=== PATIENT | female | born 1950 | race Caucasian/White ===

== ENCOUNTER 2021-10-19 16:39 | Emergency (ER) | payer MEDICARE, SELFPAY ==
--- NOTE | 2021-10-19 16:40 | ED_ITS ---
Documented by User: Champ Rivero MD 11/01/21 00:02 HPI - Fall General: Chief Complaint: Fall Stated Complaint: ams fall Time Seen by Provider: 10/19/21 16:40 Limitations: altered mental status History of Present Illness: Ms Ellington is a 71-year-old lady with unclear past medical or surgical history who presents to the emergency department with altered mental status and apparently a fall. There is no collateral information available other than EMS report that the patient had a few drinks and fell. History is otherwise limited by patient's current mental status. She provides no meaningful history. Review of Systems General: Reports: ROS unobtainable due to mental status PFS ED PFSH: Medical History Medical history unknown Surgical History Surgical history unknown Social History Alcohol intake: current Physical Exam Const: COMMON NORMALS: alert GENERAL APPEARANCE: well developed HENMT: COMMON NORMALS: normocephalic HEAD & SCALP: normocephalic OTHER: No russo signs or raccoon eyes. No hemotympanum. No otorrhea or rhinorrhea. Jaw alignment normal. Dentition baseline. No obvious bony step-offs. No evidence of ocular entrapment. Eye: COMMON NORMALS: conjunctivae normal CONJUNCTIVA: Yes conjunctivae normal SCLERA: sclerae normal Neck/C-Spine: COMMON NORMALS: supple GENERAL: Yes trachea midline Resp: COMMON NORMALS: normal respiratory effort EFFORT & INSPECTION: Yes able to speak in complete sentences Cardio: COMMON NORMALS: regular rate and regular rhythm RATE: regular rate RHYTHM: regular rhythm GI: COMMON NORMALS: Soft to palpation PALPATION: Yes Soft to palpation, Yes Tenderness to palpation present (GI), No Guarding due to palpation present (GI), No Rigid due to palpation and Yes Palpable mass present (suprapubic distention) PERCUSSION: normal to percussion Extremity: GENERAL: Yes normal exam except as noted and No edema Neuro: COMMON NORMALS: moves all extremities SENSORIUM/ORIENTATION: Yes alert and Yes Orientation impaired Psych: MEMORY/COGNITION: Yes memory grossly impaired and Yes cognition grossly impaired Course ED course: - Patient was seen and evaluated by me at bedside - Patient placed on cardiac monitors, IV access obtained - Initial evaluation notable for altered status of uncertain etiology. Head to toe exam performed. - Patient care handed off to overnight ED physician Dr. Shankar pending completion of ED evaluation and reassessment. Vital Signs: Vital signs: Vital Signs Pulse Rate 90 10/19/21 20:59 Respiratory Rate 16 10/19/21 20:59 Blood Pressure 103/55 10/19/21 20:59 Pulse Oximetry 98 10/19/21 20:59 MDM - Fall Medical Records I reviewed the patient's medical records. Lab Data I reviewed the patient's lab results. : 10/19/21 19:00 10/19/21 19:00 Radiology Impressions Cervical Spine CT 10/19/21 16:52 IMPRESSION: No acute abnormality. Chest/Abdomen/Pelvis CT 10/19/21 16:52 IMPRESSION: No acute traumatic intrathoracic findings. IMPRESSION: 1. No acute traumatic intra-abdominal findings. 2. Distended debris-filled stomach with an over distended bladder which is likely contributing to findings on exam. Head CT 10/19/21 16:52 IMPRESSION: No acute intracranial abnormality. Laboratory Results WBC 5.1 10^3/uL (4.0-10.0) 10/19/21 19:00 RBC 4.16 10^6/uL (4.1-5.3) 10/19/21 19:00 Hgb 13.4 g/dL (11.5-15.3) 10/19/21 19:00 Hct 39.4 % (37.0-47.0) 10/19/21 19:00 MCV 94.7 fl (81-99) 10/19/21 19:00 MCH 32.2 pg (28.0-34.0) 10/19/21 19:00 MCHC 34.0 g/dL (30.0-36.0) 10/19/21 19:00 RDW 12.4 % (12.1-15.1) 10/19/21 19:00 Plt Count 247 10^3/cmm (130-400) 10/19/21 19:00 MPV 10.9 fL (7.4-10.4) H 10/19/21 19:00 Neut % (Auto) 60.8 % 10/19/21 19:00 Lymph % (Auto) 26.7 % 10/19/21 19:00 [place] % (Auto) 8.4 % 10/19/21 19:00 Eos % (Auto) 3.3 % 10/19/21 19:00 Baso % (Auto) 0.4 % 10/19/21 19:00 Neut # (Auto) 3.10 10^3/uL (1.8-7.7) 10/19/21 19:00 Lymph # (Auto) 1.4 10^3/uL (0.8-4.8) 10/19/21 19:00 [place] # (Auto) 0.4 10^3/uL (0.2-0.9) 10/19/21 19:00 Eos # (Auto) 0.2 10^3/uL (0.0-0.8) 10/19/21 19:00 Baso # (Auto) 0.0 10^3/uL (0.0-0.1) 10/19/21 19:00 Nucleated RBC % (auto) 0 % 10/19/21 19:00 Nucleated RBCs # 0.0 /100WBC 10/19/21 19:00 Sodium 138 mmol/L (136-145) 10/19/21 19:00 Potassium 3.8 mmol/L (3.5-5.1) 10/19/21 19:00 Chloride 100 mmol/L (98-107) 10/19/21 19:00 Carbon Dioxide 23 mmol/L (22-29) 10/19/21 19:00 Anion Gap 18.8 (5-19) 10/19/21 19:00 BUN 9 mg/dL (8-23) 10/19/21 19:00 Creatinine 0.7 mg/dL (0.5-0.9) 10/19/21 19:00 GFR Calculation Not Reportable 10/19/21 19:00 Glucose 123 mg/dL (65-115) H 10/19/21 19:00 POC Glucose 126 mg/dL (70-110) H 10/19/21 16:55 Calculated Osmolality 286 mOsm/kg (285-295) 10/19/21 19:00 Calcium 9.4 mg/dL (8.5-10.5) 10/19/21 19:00 Total Bilirubin 0.2 mg/dL (0.15-1.2) 10/19/21 19:00 AST 21 U/L (0-32) 10/19/21 19:00 ALT 25 U/L (0-33) 10/19/21 19:00 Alkaline Phosphatase 76 IU/L (35-105) 10/19/21 19:00 Troponin T Baseline 6 ng/L (0-10) 10/19/21 19:00 Total Protein 6.5 g/dL (6.6-8.7) L 10/19/21 19:00 Albumin 4.3 g/dL (3.5-5.2) 10/19/21 19:00 Globulin 2.2 g/dL (1.3-4.6) 10/19/21 19:00 TSH 2.14 uIU/mL (0.27-4.20) 10/19/21 19:00 Urine Color Yellow (Yellow) 10/19/21 19:05 Urine Appearance Clear (CLEAR) 10/19/21 19:05 Urine pH 5 (5-7) 10/19/21 19:05 Ur Specific [place] 1.000 (1.005-1.030) L 10/19/21 19:05 Urine Protein Neg (Negative) 10/19/21 19:05 Urine Glucose (UA) Norm (Normal) 10/19/21 19:05 Urine Ketones Negative (Negative) 10/19/21 19:05 Urine Blood Neg (Negative) 10/19/21 19:05 Urine Nitrate Negative (Negative) 10/19/21 19:05 Urine Bilirubin Neg (Negative) 10/19/21 19:05 Urine Urobilinogen Norm mg/dL (Negative) 10/19/21 19:05 Ur Leukocyte Esterase Negative (Negative) 10/19/21 19:05 Salicylates < 0.3 mg/dL (3-10) L 10/19/21 19:00 Acetaminophen < 5.0 ug/mL (10-30) L 10/19/21 19:00 Ethyl Alcohol 240 mg/dL (0-10) H 10/19/21 19:00 Discharge Plan Discharge Patient Disposition: Home Clinical Impression: Alcohol intoxication, Concussion without loss of consciousness Condition: Stable Discharge Orders: Discharge ED (Routine); Ordered 10/19/21 Ordered By: Quoc Shankar Patient Instructions: Concussion (ED), Alcohol Intoxication (ED) Activity Restrictions/Additional Instructions: Return for worsening mental status, vomiting, other concerning symptoms. Stay hydrated. A sober adult should be with you for 24 hours until alcohol has sufficiently cleared your system. Coding Level of Care Code ED Insurance Policy Issue Clerk for Chg Fwd Exam Comprehensive Documented by User: Quoc Shankar, DO 10/19/21 22:54 HPI - Fall General: Chief Complaint: Fall Stated Complaint: ams fall Time Seen by Provider: 10/19/21 16:40 PFSH ED PFSH: Medical History Medical history unknown Surgical History Surgical history unknown Social History Alcohol intake: current Course Vital Signs: Vital signs: Vital Signs Pulse Rate 90 10/19/21 20:59 Respiratory Rate 16 10/19/21 20:59 Blood Pressure 103/55 10/19/21 20:59 Pulse Oximetry 98 10/19/21 20:59 MDM - Fall Medical Decision Making 71-year-old female checked out to me by at shift change. This patient had mental status changes. She had slipped and fallen. She was minimally arousable on arrival. She has since been up to the bedside commode, and seems to be improving. She is receiving some IV fluid. Her CBC is normal. Her BMP is normal. Her alcohol level is 240, which is a surprise to her family members. Her head and cervical spine CTs are negative. Chest abdomen pelvis CT is negative she does not have a urinary tract infection. Since she is arousable, has a sober adult with her, and her vital signs are stable, with negative imagi ng, she does not meet criteria for medical admission. She will be allowed discharge home. Lab Data : 10/19/21 19:00 10/19/21 19:00 Radiology Impressions Cervical Spine CT 10/19/21 16:52 IMPRESSION: No acute abnormality. Chest/Abdomen/Pelvis CT 10/19/21 16:52 IMPRESSION: No acute traumatic intrathoracic findings. IMPRESSION: 1. No acute traumatic intra-abdominal findings. 2. Distended debris-filled stomach with an over distended bladder which is likely contributing to findings on exam. Head CT 10/19/21 16:52 IMPRESSION: No acute intracranial abnormality. Laboratory Results WBC 5.1 10^3/uL (4.0-10.0) 10/19/21 19:00 RBC 4.16 10^6/uL (4.1-5.3) 10/19/21 19:00 Hgb 13.4 g/dL (11.5-15.3) 10/19/21 19:00 Hct 39.4 % (37.0-47.0) 10/19/21 19:00 MCV 94.7 fl (81-99) 10/19/21 19:00 MCH 32.2 pg (28.0-34.0) 10/19/21 19:00 MCHC 34.0 g/dL (30.0-36.0) 10/19/21 19:00 RDW 12.4 % (12.1-15.1) 10/19/21 19:00 Plt Count 247 10^3/cmm (130-400) 10/19/21 19:00 MPV 10.9 fL (7.4-10.4) H 10/19/21 19:00 Neut % (Auto) 60.8 % 10/19/21 19:00 Lymph % (Auto) 26.7 % 10/19/21 19:00 [place] % (Auto) 8.4 % 10/19/21 19:00 Eos % (Auto) 3.3 % 10/19/21 19:00 Baso % (Auto) 0.4 % 10/19/21 19:00 Neut # (Auto) 3.10 10^3/uL (1.8-7.7) 10/19/21 19:00 Lymph # (Auto) 1.4 10^3/uL (0.8-4.8) 10/19/21 19:00 [place] # (Auto) 0.4 10^3/uL (0.2-0.9) 10/19/21 19:00 Eos # (Auto) 0.2 10^3/uL (0.0-0.8) 10/19/21 19:00 Baso # (Auto) 0.0 10^3/uL (0.0-0.1) 10/19/21 19:00 Nucleated RBC % (auto) 0 % 10/19/21 19:00 Nucleated RBCs # 0.0 /100WBC 10/19/21 19:00 Sodium 138 mmol/L (136-145) 10/19/21 19:00 Potassium 3.8 mmol/L (3.5-5.1) 10/19/21 19:00 Chloride 100 mmol/L (98-107) 10/19/21 19:00 Carbon Dioxide 23 mmol/L (22-29) 10/19/21 19:00 Anion Gap 18.8 (5-19) 10/19/21 19:00 BUN 9 mg/dL (8-23) 10/19/21 19:00 Creatinine 0.7 mg/dL (0.5-0.9) 10/19/21 19:00 GFR Calculation Not Reportable 10/19/21 19:00 Glucose 123 mg/dL (65-115) H 10/19/21 19:00 POC Glucose 126 mg/dL (70-110) H 10/19/21 16:55 Calculated Osmolality 286 mOsm/kg (285-295) 10/19/21 19:00 Calcium 9.4 mg/dL (8.5-10.5) 10/19/21 19:00 Total Bilirubin 0.2 mg/dL (0.15-1.2) 10/19/21 19:00 AST 21 U/L (0-32) 10/19/21 19:00 ALT 25 U/L (0-33) 10/19/21 19:00 Alkaline Phosphatase 76 IU/L (35-105) 10/19/21 19:00 Troponin T Baseline 6 ng/L (0-10) 10/19/21 19:00 Total Protein 6.5 g/dL (6.6-8.7) L 10/19/21 19:00 Albumin 4.3 g/dL (3.5-5.2) 10/19/21 19:00 Globulin 2.2 g/dL (1.3-4.6) 10/19/21 19:00 TSH 2.14 uIU/mL (0.27-4.20) 10/19/21 19:00 Urine Color Yellow (Yellow) 10/19/21 19:05 Urine Appearance Clear (CLEAR) 10/19/21 19:05 Urine pH 5 (5-7) 10/19/21 19:05 Ur Specific [place] 1.000 (1.005-1.030) L 10/19/21 19:05 Urine Protein Neg (Negative) 10/19/21 19:05 Urine Glucose (UA) Norm (Normal) 10/19/21 19:05 Urine Ketones Negative (Negative) 10/19/21 19:05 Urine Blood Neg (Negative) 10/19/21 19:05 Urine Nitrate Negative (Negative) 10/19/21 19:05 Urine Bilirubin Neg (Negative) 10/19/21 19:05 Urine Urobilinogen Norm mg/dL (Negative) 10/19/21 19:05 Ur Leukocyte Esterase Negative (Negative) 10/19/21 19:05 Salicylates < 0.3 mg/dL (3-10) L 10/19/21 19:00 Acetaminophen < 5.0 ug/mL (10-30) L 10/19/21 19:00 Ethyl Alcohol 240 mg/dL (0-10) H 10/19/21 19:00 Discharge Plan Discharge Patient Disposition: Home Clinical Impression: Alcohol intoxication, Concussion without loss of consciousness Condition: Stable Discharge Orders: Discharge ED (Routine); Ordered 10/19/21 Ordered By: Quoc Shankar Patient Instructions: Concussion (ED), Alcohol Intoxication (ED) Activity Restrictions/Additional Instructions: Return for worsening mental status, vomiting, other concerning symptoms. Stay hydrated. A sober adult should be with you for 24 hours until alcohol has sufficiently cleared your system. Coding Level of Care Code ED Insurance Policy Issue Clerk for Charli Fwd Exam Comprehensive
--- NOTE | 2021-10-19 16:52 | CTR_ITS ---
PROCEDURE INFORMATION: Exam: CT Chest Without Contrast; Diagnostic Exam date and time: 10/19/2021 5:20 PM Age: 71 years old Clinical indication: Injury or trauma; Generalized; Blunt trauma (contusions or hematomas); Injury details: Fall x today. AMS. PT is unable to give any HX. Lower abd distention; Additional info: TECHNIQUE: Imaging protocol: Diagnostic computed tomography of the chest without contrast. Radiation optimization: All CT scans at this facility use at least one of these dose optimization techniques: automated exposure control; mA and/or kV adjustment per patient size (includes targeted exams where dose is matched to clinical indication); or iterative reconstruction. COMPARISON: CT cervical spin wo con* [id number] 10/19/2021 5:15 PM RADIATION DOSE METRICS: Total DLP (mGy-cm): 1195.64 FINDINGS: Lungs: No consolidation. No masses. Pleural spaces: No pneumothorax. No pleural effusion. Heart: No coronary artery calcifications. No cardiomegaly. No pericardial effusion. Lymph nodes: No enlarged lymph nodes. Vasculature: No aortic aneurysm. Bones/joints: No acute fracture. Soft tissues: Unremarkable. PROCEDURE INFORMATION: Exam: CT Abdomen And Pelvis Without Contrast Exam date and time: 10/19/2021 5:20 PM Age: 71 years old Clinical indication: Injury or trauma; Generalized; Blunt trauma (contusions or hematomas); Injury details: Fall x today. AMS. PT is unable to give any HX. Lower abd distention; Additional info: TECHNIQUE: Imaging protocol: Computed tomography of the abdomen and pelvis without contrast. Radiation optimization: All CT scans at this facility use at least one of these dose optimization techniques: automated exposure control; mA and/or kV adjustment per patient size (includes targeted exams where dose is matched to clinical indication); or iterative reconstruction. COMPARISON: No relevant prior studies available. RADIATION DOSE METRICS: Total DLP (mGy-cm): 1195.64 FINDINGS: Liver: Subcentimeter cyst noted in the right hepatic lobe. Gallbladder and bile ducts: Normal. No calcified stones. No ductal dilation. Pancreas: Normal. No ductal dilation. Spleen: Normal. No splenomegaly. Adrenal glands: Normal. No mass. Kidneys and ureters: Normal. No hydronephrosis. Stomach and bowel: Distended stomach with debris. No obstruction. No mucosal thickening. Appendix: No evidence of appendicitis. Intraperitoneal space: Unremarkable. No free air. No significant fluid collection. Vasculature: Unremarkable. No abdominal aortic aneurysm. Lymph nodes: Unremarkable. No enlarged lymph nodes. Urinary bladder: Over distended bladder. Otherwise, unremarkable. Reproductive: Unremarkable as visualized. Bones/joints: No acute fracture. Soft tissues: Unremarkable. CT/[place] [id number] IMPRESSION: No acute traumatic intrathoracic findings. IMPRESSION: 1. No acute traumatic intra-abdominal findings. 2. Distended debris-filled stomach with an over distended bladder which is likely contributing to findings on exam.
--- NOTE | 2021-10-19 16:52 | CTR_ITS ---
PROCEDURE INFORMATION: Exam: CT Head Without Contrast Exam date and time: 10/19/2021 5:12 PM Age: 71 years old Clinical indication: Injury or trauma; Fall; Blunt trauma (contusions or hematomas); Altered mental status/memory loss; Additional info: Fall, AMS TECHNIQUE: Imaging protocol: Computed tomography of the head without contrast. Radiation optimization: All CT scans at this facility use at least one of these dose optimization techniques: automated exposure control; mA and/or kV adjustment per patient size (includes targeted exams where dose is matched to clinical indication); or iterative reconstruction. COMPARISON: No relevant prior studies available. RADIATION DOSE METRICS: Total DLP (mGy-cm): 867.13 FINDINGS: Brain: Normal. No hemorrhage. Unremarkable white matter. No mass effect. Cerebral ventricles: No ventriculomegaly. Paranasal sinuses: Visualized sinuses are unremarkable. No fluid levels. Mastoid air cells: Visualized mastoid air cells are well aerated. Bones/joints: Unremarkable. No acute fracture. Soft tissues: Unremarkable. CT/CT head wo con* [id number] IMPRESSION: No acute intracranial abnormality.
--- NOTE | 2021-10-19 16:52 | CTR_ITS ---
PROCEDURE INFORMATION: Exam: CT Cervical Spine Without Contrast Exam date and time: 10/19/2021 5:15 PM Age: 71 years old Clinical indication: Injury or trauma; Fall; Blunt trauma; Additional info: Fall, AMS TECHNIQUE: Imaging protocol: Computed tomography of the cervical spine without contrast. Radiation optimization: All CT scans at this facility use at least one of these dose optimization techniques: automated exposure control; mA and/or kV adjustment per patient size (includes targeted exams where dose is matched to clinical indication); or iterative reconstruction. COMPARISON: CT head wo con* [id number] 10/19/2021 5:12 PM RADIATION DOSE METRICS: Total DLP (mGy-cm): 339.28 FINDINGS: Bones/joints: Grade 1 anterolisthesis of C4 over C5. Discs/Spinal canal/Neural foramina: Multilevel degenerative disc disease, most prominent at C5-C6 level. There is multilevel uncovertebral and facet hypertrophy with neural foramina narrowing. Lungs: Lung apices are normal. Soft tissues: Unremarkable. CT/CT cervical spin wo con* [id number] IMPRESSION: No acute abnormality.
--- NOTE | 2021-10-19 16:53 | ECG_ITS ---
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 Measurements Intervals [place] Rate: 77 P: 60 AK: 130 QRS: 60 QRSD: 86 T: 47 QT: 334 QTc: 378 Interpretive Statements SINUS RHYTHM NONSPECIFIC ST & T-WAVE ABNORMALITY No previous ECG available for comparison Electronically Signed On 10-19-2021 22:50:49 CDT by Dinorah Hunt M.D. [id number]
[2021-10-19 16:59] LABS: Glucose Point of Care 126 mg/dL (70-110)
[2021-10-19 17:02] VITALS: BP 108/55; PULSE 71; RESP 15; O2SAT 99; BMI 28.5
--- NOTE | 2021-10-19 17:15 | PC.NURSE ---
Unable to complete suicide assessment at this time.
[2021-10-19 19:00] VITALS: PULSE 89; O2SAT 99
[2021-10-19 19:09] LABS: Basophils % 0.4 %; Eosinophils # 0.2 10^3/uL (0.0-0.8); Eosinophils % 3.3 %; Hematocrit 39.4 % (37.0-47.0); Hemoglobin 13.4 g/dL (11.5-15.3); Lymphocytes # 1.4 10^3/uL (0.8-4.8); Lymphocytes % 26.7 %; Mean Corpuscular Hemoglobin 32.2 pg (28.0-34.0); Mean Corpuscular Volume 94.7 fl (81-99); Mean Platelet Volume 10.9 fL (7.4-10.4); Monocytes # 0.4 10^3/uL (0.2-0.9); Monocytes % 8.4 %; Neutrophils % 60.8 %; Nucleated Red Blood Cells % 0 %; Platelet Count 247 10^3/cmm (130-400); Red Blood Count 4.16 10^6/uL (4.1-5.3); Red Cell Distribution Width 12.4 % (12.1-15.1); White Blood Count 5.1 10^3/uL (4.0-10.0)
[2021-10-19 19:15] LABS: Add Urine Microscopic? NO; Charge for UA Resulting for Rev
[2021-10-19 19:20] LABS: Bilirubin Urine Neg (Negative); Blood Urine Neg (Negative); Glucose Urine UA Norm (Normal); Ketones Urine Negative (Negative); Leukocyte Esterase Urine Negative (Negative); Nitrate Urine Negative (Negative); Protein Urine Neg (Negative); Urine Appearance Clear (CLEAR); Urine Color Yellow (Yellow); Urobilinogen Urine Norm (Negative); pH Urine 5 (5-7)
[2021-10-19 19:30] VITALS: BP 100/60; PULSE 78; RESP 16; O2SAT 98
[2021-10-19 19:39] LABS: Alanine Aminotransferase 25 U/L (0-33); Albumin Level 4.3 g/dL (3.5-5.2); Alcohol Level 240 mg/dL (0-10); Alkaline Phosphatase 76 IU/L (35-105); Anion Gap 18.8 (5-19); Aspartate Amino Transferase 21 U/L (0-32); Blood Urea Nitrogen 9 mg/dL (8-23); Calcium 9.4 mg/dL (8.5-10.5); Carbon Dioxide 23 mmol/L (22-29); Chloride 100 mmol/L (98-107); Globulin 2.2 g/dL (1.3-4.6); Glucose 123 mg/dL (65-115); Osmolality Calculated 286 mOsm/kg (285-295); Potassium 3.8 mmol/L (3.5-5.1); Sodium 138 mmol/L (136-145); Thyroid Stimulating Hormone 2.14 uIU/mL (0.27-4.20); Total Bilirubin 0.2 mg/dL (0.15-1.2); Total Protein 6.5 g/dL (6.6-8.7)
[2021-10-19 19:41] LABS: Acetaminophen < 5.0 ug/mL (10-30); Salicylate < 0.3 mg/dL (3-10)
[2021-10-19] MEDS: sodium chloride 0.9% 1,000 ML 999 ML IV (19:41)
[2021-10-19 19:56] LABS: Troponin(5th) Baseline 6 ng/L (0-10)
[2021-10-19 20:59] VITALS: BP 103/55; PULSE 90; RESP 16; O2SAT 98
== END 2021-10-19 21:01 | disposition home or self-care (01) ==
PROVIDERS: Emergency Medicine; Emergency Provider Emergency Medicine
DX: F10.129 Alcohol abuse with intoxication, unspecified (principal); Y90.8 Blood alcohol level of 240 mg/100 ml or more; S06.0X0A Concussion without loss of consciousness, initial encounter; W19.XXXA Unspecified fall, initial encounter
CPT/HCPCS: 36415; 36416; 70450; 71250; 72125; 74176; 80053; 80307; 81003; 82962; 84443; 84484; 85025; 93005; 96360; 99284; J7030